=== PATIENT | male | born 1960 | race African-American/Black ===

== ENCOUNTER 2019-01-05 13:52 | Inpatient (IN) | payer OTHER ==
[2019-01-05 15:27] VITALS: BMI 24.9
--- NOTE | 2019-01-05 16:25 | HP ---
CIWA Score Nausea/Vomitin Muscle Tremors: 3 Anxiety: 3 Agitation: 2 Paroxysmal Sweats: 2 Orientation: 0-Oriented Tacttile Disturbances: 0-None Auditory Disturbances: 0-None Visual Disturbances: 0-None Headache: 0-None Present CIWA-Ar Total Score: 13 - Admission Criteria OASAS Guidelines: Admission for Medically Managed Detox: Requires at least one of the followin. CIWA greater than 12 2. Seizures within the past 24 hours 3. Delirium tremens within the past 24 hours 4. Hallucinations within the past 24 hours 5. Acute intervention needed for co occurring medical disorder 6. Acute intervention needed for co occurring psychiatric disorder 7. Severe withdrawal that cannot be handled at a lower level of care (continued vomiting, continued diarrhea, abnormal vital signs) requiring intravenous medication and/or fluids 8. Patient presents the following: CIWA greater than 12 Admission Criteria Met: Admission criteria met Admission ROS [facility] - [facility] Chief Complaint: "I need detox" Allergies/Adverse Reactions: Allergies Allergy/AdvReac Type Severity Reaction Status Date / Time No Known Allergies Allergy Verified 01/05/19 15:08 History of Present Illness: 58 y/o male presents requesting alcohol detox. This is patient's first visit here, but he has had detox at other facilities. Pt is a MMTP at [facility], he is on 40mg daily, last medicated today and presents bottle for tomorrow. Patient understands he will get his 40mg dose tomorrow but the other doses will be pending verification. Utox is positive for MOP,fen, oxy and Mtd. He denies using fentanyl and endorses using opiates despite being in a methadone prog. Denies SI/HI, denies black outs nor seizures. med hx : Bronchitis, Exam Limitations: No Limitations - Ebola screening Have you traveled outside of the country in the last 21 days: No (N) Have you had contact with anyone from an Ebola affected area: No Do you have a fever: No - Review of Systems Constitutional: Unintentional Wgt. Loss EENT: reports: Nose Congestion, Dental Problems (wears dentures), Other (wears contacts) Respiratory: reports: No Symptoms reported Cardiac: reports: No Symptoms Reported GI: reports: No Symptoms Reported : reports: No Symptoms Reported Musculoskeletal: reports: Back Pain Integumentary: reports: No Symptoms Reported Neuro: reports: No Symptoms reported Endocrine: reports: No Symptoms Reported Hematology: reports: No Symptoms Reported Psychiatric: reports: No Sypmtoms Reported, Orientated x3 Other Systems: Reviewed and Negative Patient History - Patient Medical History Hx Anemia: No Hx Asthma: No (Hx - bronchitis - on symbicort) Hx Chronic Obstructive Pulmonary Disease (COPD): No Hx Cancer: No Hx Cardiac Disorders: No Hx Congestive Heart Failure: No Hx Hypertension: No Hx Hypercholesterolemia: No Hx Pacemaker: No HX Cerebrovascular Accident: No Hx Seizures: No Hx Dementia: No Hx Diabetes: No Hx Gastrointestinal Disorders: No Hx Liver Disease: No Hx Genitourinary Disorders: No Hx Sexually Transmitted Disorders: Yes (Gonorhhea x 37 yrs ago) Hx Renal Disease (ESRD): No Hx Thyroid Disease: No Hx Human Immunodeficiency Virus (HIV): No Hx Hepatitis C: No Hx Depression: No Hx Suicide Attempt: No (denies) Hx Bipolar Disorder: No Hx Schizophrenia: No - Patient Surgical History Past Surgical History: Yes Other Surgical History: Lumbectomy, R shoulder ligament reconstruction - PPD History Previous Implant?: No Documented Results: Negative w/o proof Implanted On Prior [facility] Admission?: No PPD to be Administered?: Yes - Reproductive History Patient is a Female of Child Bearing Age (11 -55 yrs old): No - Smoking Cessation Smoking history: Current every day smoker Have you smoked in the past 12 months: Yes Aproximately how many cigarettes per day: 8 Hx Chewing Tobacco Use: No Initiated information on smoking cessation: Yes 'Breaking Loose' booklet given: 01/05/19 - Substance & Tx. History Hx Alcohol Use: Yes Hx Substance Use: Yes Substance Use Type: Alcohol Hx Substance Use Treatment: Yes - Substances abused Heroin Substance route: Inhalation Frequency: Daily Amount used: 2 bags Age of first use: 18 Date of last use: 01/05/19 Alcohol Frequency: Daily Amount used: 1/2 pint of liquor Age of first use: 17 Date of last use: 01/05/19 Family Disease History - Family Disease History Family History: Unremarkable Admission Physical Exam BHS - Vital Signs Vital Signs: Vital Signs - 24 hr 01/05/19 15:04 Temperature 98.0 F Pulse Rate 52 L Respiratory 19 Rate Blood Pressure 120/73 - Physical General Appearance: Yes: Mild Distress HEENTM: Yes: Nasal Congestion Respiratory: Yes: Lungs Clear, Normal Breath Sounds, No Respiratory Distress Neck: Yes: No masses,lesions,Nodules, Trachea in good position Breast: Yes: Breast Exam Deferred Cardiology: Yes: Regular Rhythm, Regular Rate, S1, S2 Abdominal: Yes: Within Normal Limits, Normal Bowel Sounds, Non Tender, Soft Genitourinary: Yes: Within Normal Limits Back: Yes: Normal Inspection Musculoskeletal: Yes: full range of Motion, Gait Steady Extremities: Yes: Normal Capillary Refill, Normal Inspection Neurological: Yes: Within Normal Limits, Fully Oriented, Alert Integumentary: Yes: Within Normal Limits, Dry, Warm Lymphatic: Yes: Within Normal Limits - Diagnostic (1) Alcohol dependence, uncomplicated Current Visit: Yes Status: Acute (2) Methadone maintenance therapy patient Current Visit: Yes Status: Chronic (3) Nicotine dependence Current Visit: Yes Status: Acute (4) Hx of bronchitis Current Visit: Yes Status: Chronic Cleared for Admission S - Detox or Rehab [facility] Level of Care: Medically Managed Detox Regimen/Protocol: Librium Breathalyzer - Breathalyzer Breathalyzer: 0 Urine Drug Screen - Test Device Lot number: [id number] Expiration date: 09/20/20 - Control Is test valid?: Yes - Results Drug screen NEGATIVE: No Urine drug screen results: FEN-Fentanyl, MOP-Opiates, OXY-Oxycodone, MTD- Methadone Inpatient Rehab Admission - Rehab Decision to Admit Inpatient rehab admission?: No
[2019-01-05] MEDS ORDERED: MAGNESIUM CITRATE 300 ML BOTTLE PO PRN (16:42)
[2019-01-05] MEDS ORDERED: METHOCARBAMOL 500 MG TABLET PO PRN (16:42)
[2019-01-05] MEDS ORDERED: MAGNESIUM HYDROX 2400MG/30ML ORAL SUSPENSION 30 ML CUP PO PRN (16:42)
[2019-01-05] MEDS ORDERED: MENTHOL/PHENOL 1 EACH UD MM PRN (16:42)
[2019-01-05] MEDS ORDERED: BISMUTH SUBSALICYLATE 524 MG/30 ML UD PO PRN (16:42)
[2019-01-05] MEDS ORDERED: MAG HYDROX/AL HYDROX/SIMETH 30 ML UNIT-DOSE CUP PO PRN (16:42)
[2019-01-05] MEDS ORDERED: IBUPROFEN 400 MG TABLET (FP) PO PRN (16:42)
[2019-01-05] MEDS ORDERED: hydrOXYzine PAMOATE 25 MG CAPSULE (FP) PO PRN (16:42)
[2019-01-05] MEDS ORDERED: NICOTINE POLACRILEX 2 MG GUM BUC PRN (16:42)
[2019-01-05] MEDS ORDERED: ACETAMINOPHEN 325 MG TABLET (FP) PO PRN ×2 (16:42)
[2019-01-05] MEDS: NICOTINE 14 MG/24 HOURS TOPICAL PATCH TD SCH (18:18)
[2019-01-05] MEDS: chlordiazePOXIDE HCL 10 MG CAPSULE PO PRN (18:18)
[2019-01-05] MEDS: THIAMINE HCL 100 MG TABLET (FP) PO SCH (22:38)
[2019-01-05] MEDS: chlordiazePOXIDE HCL 25 MG CAPSULE PO SCH (22:38)
[2019-01-06] MEDS: chlordiazePOXIDE HCL 25 MG CAPSULE PO SCH ×2 (05:36→13:08)
[2019-01-06] MEDS: NICOTINE 14 MG/24 HOURS TOPICAL PATCH TD SCH (10:05)
[2019-01-06] MEDS: PRENATAL VITAMINS W/ FOLIC ACID TABLET (FP) PO SCH (10:05)
[2019-01-06 10:18] LABS: HEMATOCRIT 43.6 % (35.4-49); HEMOGLOBIN 14.4 GM/dL (11.7-16.9); MCH 30.7 pg (25.7-33.7); MEAN CELL VOLUME 93.3 fl (80-96); MEAN PLT VOLUME 8.7 fl (7.5-11.1); PLATELET COUNT 234 K/MM3 (134-434); RBC 4.67 M/mm3 (4.00-5.60); RDW 13.4 % (11.9-15.9); WHITE BLOOD COUNT 2.9 K/mm3 (4.0-10.0)
[2019-01-06 10:36] LABS: ALBUMIN 3.5 g/dl (3.4-5.0); BILIRUBIN,TOTAL 0.9 mg/dL (0.2-1); CREATININE 0.9 mg/dL (0.55-1.3); POTASSIUM 4.3 mmol/L (3.5-5.1); TOT PROT 6.6 g/dl (6.4-8.2)
--- NOTE | 2019-01-06 10:39 | PN ---
[facility] CIWA - CIWA Score Nausea/Vomitin-Mild Nausea/No Vomiting Muscle Tremors: 3 Anxiety: 2 Agitation: 2 Paroxysmal Sweats: 1-Minimal Palms Moist Orientation: 1-Uncertain about Date Tacttile Disturbances: 0-None Auditory Disturbances: 0-None Visual Disturbances: 0-None Headache: 1-Very Mild CIWA-Ar Total Score: 11 S Progress Note (SOAP) Subjective: tolerate librium well waiting for bottle of methadone fetch from security property to order methadone 40 mg maintenance dosage Objective: 01/06/19 10:40 Vital Signs Temperature 97.7 F 01/06/19 09:08 Pulse Rate 76 01/06/19 09:08 Respiratory Rate 16 01/06/19 09:08 Blood Pressure 117/85 01/06/19 09:08 O2 Sat by Pulse Oximetry (%) Laboratory Last Values WBC 2.9 K/mm3 (4.0-10.0) L 01/06/19 07:50 RBC 4.67 M/mm3 (4.00-5.60) 01/06/19 07:50 Hgb 14.4 GM/dL (11.7-16.9) 01/06/19 07:50 Hct 43.6 % (35.4-49) 01/06/19 07:50 MCV 93.3 fl (80-96) 01/06/19 07:50 MCH 30.7 pg (25.7-33.7) 01/06/19 07:50 MCHC 33.0 g/dl (32.0-35.9) 01/06/19 07:50 RDW 13.4 % (11.9-15.9) 01/06/19 07:50 Plt Count 234 K/MM3 (134-434) 01/06/19 07:50 MPV 8.7 fl (7.5-11.1) 01/06/19 07:50 Sodium 138 mmol/L (136-145) 01/06/19 07:50 Potassium 4.3 mmol/L (3.5-5.1) 01/06/19 07:50 Chloride 102 mmol/L (98-107) 01/06/19 07:50 Carbon Dioxide 32 mmol/L (21-32) 01/06/19 07:50 Anion Gap 5 MMOL/L (8-16) L 01/06/19 07:50 BUN 12 mg/dL (7-18) 01/06/19 07:50 Creatinine 0.9 mg/dL (0.55-1.3) 01/06/19 07:50 Est GFR (CKD-EPI)AfAm 109.50 01/06/19 07:50 Est GFR (CKD-EPI)NonAf 94.48 01/06/19 07:50 Random Glucose 93 mg/dL (74-106) 01/06/19 07:50 Calcium 9.0 mg/dL (8.5-10.1) 01/06/19 07:50 Total Bilirubin 0.9 mg/dL (0.2-1) 01/06/19 07:50 AST 21 U/L (15-37) 01/06/19 07:50 ALT 22 U/L (13-61) 01/06/19 07:50 Alkaline Phosphatase 67 U/L (45-117) 01/06/19 07:50 Total Protein 6.6 g/dl (6.4-8.2) 01/06/19 07:50 Albumin 3.5 g/dl (3.4-5.0) 01/06/19 07:50 lab noted low wbc 01/06/19 10:42 Assessment: 01/06/19 10:42 alcohol withdrawal sx 01/06/19 10:42 low wbc repeat cbc Plan: continue detox
[2019-01-06] MEDS ORDERED: METHADONE HCL 40 MG DISPERSABLE TABLET PO ONE (11:19)
[2019-01-06] MEDS: THIAMINE HCL 100 MG TABLET (FP) PO SCH (21:22)
[2019-01-06] MEDS: chlordiazePOXIDE 5 MG CAPSULE PO SCH (21:22)
[2019-01-06] MEDS: MELATONIN 5 MG TABLETS PO PRN (21:24)
[2019-01-07] MEDS: chlordiazePOXIDE 5 MG CAPSULE PO SCH ×2 (05:30→13:22)
[2019-01-07] MEDS ORDERED: ALBUTEROL SO4 8 GM HFA INHALER IH PRN (08:39)
[2019-01-07] MEDS ORDERED: ALBUTEROL SO4 0.083% IH SOL 2.5 MG/3 ML VIAL.NEB. NEB PRN (08:39)
[2019-01-07] MEDS ORDERED: METHADONE HCL 40 MG DISPERSABLE TABLET PO ONE ×2 (10:00)
[2019-01-07] MEDS: PRENATAL VITAMINS W/ FOLIC ACID TABLET (FP) PO SCH (10:14)
[2019-01-07] MEDS: NICOTINE 14 MG/24 HOURS TOPICAL PATCH TD SCH (10:15)
--- NOTE | 2019-01-07 11:33 | PN ---
[facility] CIWA - CIWA Score Nausea/Vomitin-Mild Nausea/No Vomiting Muscle Tremors: 2 Anxiety: 2 Agitation: 2 Paroxysmal Sweats: 1-Minimal Palms Moist Orientation: 1-Uncertain about Date Tacttile Disturbances: 0-None Auditory Disturbances: 0-None Visual Disturbances: 0-None Headache: 1-Very Mild CIWA-Ar Total Score: 10 S Progress Note (SOAP) Subjective: report chronic bronchitis treated with ventolin and nebulizer Objective: 01/07/19 11:33 Vital Signs Temperature 98.2 F 01/07/19 09:19 Pulse Rate 72 01/07/19 09:19 Respiratory Rate 20 01/07/19 09:19 Blood Pressure 130/83 01/07/19 09:19 O2 Sat by Pulse Oximetry (%) Laboratory Last Values WBC 2.9 K/mm3 (4.0-10.0) L 01/06/19 07:50 RBC 4.67 M/mm3 (4.00-5.60) 01/06/19 07:50 Hgb 14.4 GM/dL (11.7-16.9) 01/06/19 07:50 Hct 43.6 % (35.4-49) 01/06/19 07:50 MCV 93.3 fl (80-96) 01/06/19 07:50 MCH 30.7 pg (25.7-33.7) 01/06/19 07:50 MCHC 33.0 g/dl (32.0-35.9) 01/06/19 07:50 RDW 13.4 % (11.9-15.9) 01/06/19 07:50 Plt Count 234 K/MM3 (134-434) 01/06/19 07:50 MPV 8.7 fl (7.5-11.1) 01/06/19 07:50 Sodium 138 mmol/L (136-145) 01/06/19 07:50 Potassium 4.3 mmol/L (3.5-5.1) 01/06/19 07:50 Chloride 102 mmol/L (98-107) 01/06/19 07:50 Carbon Dioxide 32 mmol/L (21-32) 01/06/19 07:50 Anion Gap 5 MMOL/L (8-16) L 01/06/19 07:50 BUN 12 mg/dL (7-18) 01/06/19 07:50 Creatinine 0.9 mg/dL (0.55-1.3) 01/06/19 07:50 Est GFR (CKD-EPI)AfAm 109.50 01/06/19 07:50 Est GFR (CKD-EPI)NonAf 94.48 01/06/19 07:50 Random Glucose 93 mg/dL (74-106) 01/06/19 07:50 Calcium 9.0 mg/dL (8.5-10.1) 01/06/19 07:50 Total Bilirubin 0.9 mg/dL (0.2-1) 01/06/19 07:50 AST 21 U/L (15-37) 01/06/19 07:50 ALT 22 U/L (13-61) 01/06/19 07:50 Alkaline Phosphatase 67 U/L (45-117) 01/06/19 07:50 Total Protein 6.6 g/dl (6.4-8.2) 01/06/19 07:50 Albumin 3.5 g/dl (3.4-5.0) 01/06/19 07:50 RPR Titer Nonreactive (NONREACTIVE) 01/06/19 07:50 lab noted repeat cbc pending 01/07/19 11:33 Assessment: 01/07/19 11:34 withdrawal sx Plan: continue detox
[2019-01-07 12:45] LABS: BASO % 0.8 % (0-2.0); EOS % 7.1 % (0-4.5); HEMATOCRIT 46.5 % (35.4-49); LYMPH % 33.2 % (8-40); MCH 30.3 pg (25.7-33.7); MCHC 32.3 g/dl (32.0-35.9); MEAN CELL VOLUME 93.8 fl (80-96); MEAN PLT VOLUME 9.5 fl (7.5-11.1); MONO % 10.3 % (3.8-10.2); NEUT % 48.6 % (42.8-82.8); PLATELET COUNT 227 K/MM3 (134-434); RBC 4.95 M/mm3 (4.00-5.60); RDW 13.3 % (11.9-15.9); WHITE BLOOD COUNT 3.5 K/mm3 (4.0-10.0)
[2019-01-07] MEDS: chlordiazePOXIDE HCL 10 MG CAPSULE PO PRN (15:44)
[2019-01-07] MEDS ORDERED: chlordiazePOXIDE HCL 10 MG CAPSULE PO PRN (21:00)
[2019-01-07] MEDS: THIAMINE HCL 100 MG TABLET (FP) PO SCH (22:17)
[2019-01-07] MEDS: chlordiazePOXIDE HCL 10 MG CAPSULE PO SCH (22:18)
[2019-01-07] MEDS: MELATONIN 5 MG TABLETS PO PRN (22:18)
[2019-01-08] MEDS: chlordiazePOXIDE HCL 10 MG CAPSULE PO SCH (05:31)
[2019-01-08] MEDS ORDERED: METHADONE HCL 40 MG DISPERSABLE TABLET PO SCH (06:00)
[2019-01-08 09:06] VITALS: BP 126/82; PULSE 62; TEMP 97.7
--- NOTE | 2019-01-08 14:28 | DS ---
[facility] Detox Discharge Summary Admission Date: 01/05/19 Discharge Date: 01/08/19 - History Present History: Alcohol Dependence Additional Comments: 58 years old male admitted on 01/05/19 for alcohol withdrawal stabilization feeling better today preferring return to [facility] for medical and mental issues patient wants to return to methadone maintenance program encourage the patient bring in medication list and lab report to methadone program follow up Pertinent Past History: bring in medication list and lab report to follow up appointment strong recommend cigarette smoking cessation - Physical Exam Results Vital Signs: Vital Signs Temperature 97.7 F 01/08/19 09:06 Pulse Rate 62 01/08/19 09:06 Respiratory Rate 18 01/08/19 09:06 Blood Pressure 126/82 01/08/19 09:06 O2 Sat by Pulse Oximetry (%) Pertinent Admission Physical Exam Findings: alcohol withdrawal sx Laboratory Last Values WBC 3.5 K/mm3 (4.0-10.0) L 01/07/19 08:50 RBC 4.95 M/mm3 (4.00-5.60) 01/07/19 08:50 Hgb 15.0 GM/dL (11.7-16.9) 01/07/19 08:50 Hct 46.5 % (35.4-49) 01/07/19 08:50 MCV 93.8 fl (80-96) 01/07/19 08:50 MCH 30.3 pg (25.7-33.7) 01/07/19 08:50 MCHC 32.3 g/dl (32.0-35.9) 01/07/19 08:50 RDW 13.3 % (11.9-15.9) 01/07/19 08:50 Plt Count 227 K/MM3 (134-434) 01/07/19 08:50 MPV 9.5 fl (7.5-11.1) 01/07/19 08:50 Absolute Neuts (auto) 1.7 K/mm3 (1.5-8.0) 01/07/19 08:50 Neutrophils % 48.6 % (42.8-82.8) 01/07/19 08:50 Lymphocytes % 33.2 % (8-40) 01/07/19 08:50 Monocytes % 10.3 % (3.8-10.2) H 01/07/19 08:50 Eosinophils % 7.1 % (0-4.5) H 01/07/19 08:50 Basophils % 0.8 % (0-2.0) 01/07/19 08:50 Nucleated RBC % 0 % (0-0) 01/07/19 08:50 Sodium 138 mmol/L (136-145) 01/06/19 07:50 Potassium 4.3 mmol/L (3.5-5.1) 01/06/19 07:50 Chloride 102 mmol/L (98-107) 01/06/19 07:50 Carbon Dioxide 32 mmol/L (21-32) 01/06/19 07:50 Anion Gap 5 MMOL/L (8-16) L 01/06/19 07:50 BUN 12 mg/dL (7-18) 01/06/19 07:50 Creatinine 0.9 mg/dL (0.55-1.3) 01/06/19 07:50 Est GFR (CKD-EPI)AfAm 109.50 01/06/19 07:50 Est GFR (CKD-EPI)NonAf 94.48 01/06/19 07:50 Random Glucose 93 mg/dL (74-106) 01/06/19 07:50 Calcium 9.0 mg/dL (8.5-10.1) 01/06/19 07:50 Total Bilirubin 0.9 mg/dL (0.2-1) 01/06/19 07:50 AST 21 U/L (15-37) 01/06/19 07:50 ALT 22 U/L (13-61) 01/06/19 07:50 Alkaline Phosphatase 67 U/L (45-117) 01/06/19 07:50 Total Protein 6.6 g/dl (6.4-8.2) 01/06/19 07:50 Albumin 3.5 g/dl (3.4-5.0) 01/06/19 07:50 RPR Titer Nonreactive (NONREACTIVE) 01/06/19 07:50 lab noted patient agrees to bring in lab report to follow up appointmebt - Treatment Hospital Course: Detox Protocol Followed, Detoxed Safely, Responded well, Discharged Condition Good, Rehab Referral Accepted Patient has Accepted a Rehab Referral to: [facility] - Medication Discharge Medications: Ambulatory Orders Methadone 40 mg PO DAILY 01/05/19 SYMBICORT 160/4.5mcg - 4.5 mcg IN DAILY 01/05/19 - Diagnosis (1) Alcohol dependence, uncomplicated Status: Acute (2) Chronic bronchitis with emphysema Status: Chronic (3) Nicotine dependence Status: Acute Qualifiers: Nicotine product type: cigarettes Substance use status: in withdrawal Qualified Code(s): F17.213 - Nicotine dependence, cigarettes, with withdrawal (4) Methadone maintenance therapy patient Status: Chronic - AMA Did Patient Leave Against Medical Advice: No
[2019-01-09] MEDS ORDERED: chlordiazePOXIDE HCL 10 MG CAPSULE PO SCH (06:00)
== END 2019-01-08 09:55 | disposition home or self-care (01) | DRG 773 ==
LOC: YASAS 13:52 → Y3N 16:56
PROVIDERS: ADMIT Surgery; ATTEND Surgery
PROC: HZ2ZZZZ Detoxification Services for Substance Abuse Treatment (ICD-10-PCS; principal; 2019-01-05)
DX: F10.230 Alcohol dependence with withdrawal, uncomplicated (principal); F11.20 Opioid dependence, uncomplicated; F17.213 Nicotine dependence, cigarettes, with withdrawal; J44.9 Chronic obstructive pulmonary disease, unspecified; Z87.438 Personal history of other diseases of male genital organs
CPT/HCPCS: 36415; 80053; 85025; 85027; 86593